=== PATIENT | male | born 1950 | race Caucasian/White ===

== ENCOUNTER → 2017-11-14 | Day surgery (SDC) | payer OTHER ==
--- NOTE | 2017-11-14 11:07 | RAD REPORT ---
EXAM DESCRIPTION: US - Guided FNA Non Breast - 11/14/2017 10:15 am CLINICAL HISTORY: E04.1 COMPARISON: Thyroid ultrasound October 29, 2017. TECHNIQUE: The patient presents for FNA of a dominant 3.3 cm thyroid nodule in the deep posterior ri ght lobe. The ultrasound-guided FNA procedure, risks and alternatives were discussed with the patient in detail . After answering all questions, both oral and written consent were obtained. The deep right nodule w as again identified at sonography. The anterior neck was prepped and draped in the usual sterile fas ion. Skin and deeper tissues were anesthetized with 1% lidocaine. Under direct sonographic visualizat ion, a 25 gauge needle was used to access the nodule. Multiple to and fro excursions of the needle ti p made. All collecting material was given to pathology. The aspiration was repeated with three additi onal 25 gauge needles. All material was retained for pathology assessment. At the conclusion of the procedure, there is a minimal amount of bleeding between the skin in the jimi rnocleidomastoid muscle. This was minimal and controlled with direct pressure and ice. No deep hemorr bill. The patient was discharged with care and precaution instructions. IMPRESSION: Ultrasound-guided FNA was performed of the posterior right lobe thyroid nodule. All obta ined material was given to pathology for cytology assessment.
== END | disposition home or self-care (01) ==
LOC: FNA 09:35
PROVIDERS: ATTEND General Practice
PROC: 0G9H3ZX Drainage of Right Thyroid Gland Lobe, Percutaneous Approach, Diagnostic (ICD-10-PCS; principal; 2017-11-14)
PROC: BG44ZZZ Ultrasonography of Thyroid Gland (ICD-10-PCS; 2017-11-14)
DX: E04.1 Nontoxic single thyroid nodule (principal)
CPT/HCPCS: 76942; 88162

== ENCOUNTER 2018-11-06 19:45 | Observation (INO) | payer OTHER ==
[2018-11-06 21:02] LABS: Protime INR 1.6
[2018-11-06 21:03] LABS: Absolute Lymphocytes (CBC) 1.5 K/uL (0.7-4.9); Absolute Monocytes 0.6 K/uL (0.1-1.3); Absolute Neutrophil 6.2 K/uL (1.8-8.0); Basophils % 0.8 % (0-1.3); Eosinophils % 4.1 % (0-4.4); Lymphocytes % 17.5 % (15.3-44.8); Monocytes % 6.6 % (3.3-12.3); RBC Red Blood Cell Count 3.04 M/uL (4.33-5.43)
[2018-11-06 21:22] LABS: ALT/SGPT 23 U/L (12-78); AST/SGOT 17 U/L (15-37); Albumin 3.9 g/dL (3.4-5.0); Alkaline Phosphatase 64 U/L (45-117); BUN Blood Urea Nitrogen 16 mg/dL (7-18); Bicarbonate 25 mmol/L (21-32); Bilirubin Direct 0.2 mg/dL (0-0.2); Bilirubin Total 0.4 mg/dL (0.2-1.0); Glucose Level 144 mg/dL (74-106); Magnesium 2.4 mg/dL (1.8-2.4); NT PRO-BNP 447 pg/mL (<125); Potassium 3.7 mmol/L (3.5-5.1); Protein, Total 7.1 g/dL (6.4-8.2); Sodium Level 144 mmol/L (136-145); Troponin (Emerg Dept Use Only) < 0.02 ng/mL (0.0-0.045)
--- NOTE | 2018-11-06 22:13 | ER ---
Nurse's Notes [facility] Name: Joe Carbone Age: 67 yrs Sex: Male : 1950 Arrival Date: 11/06/2018 Time: 19:46 Bed 23 Private MD: Gadiel Cueva Diagnosis: Anemia, unspecified Presentation: 11/06 19:57 Presenting complaint: Patient states: "I've been feeling run down, my doctor did test aj1 and my hemoglobin was 6.8 so he told me to come the emergency room" Patient denies dark stools, denies any source of bleeding that he is aware of. Reports that he takes Xarelto. Denies pain. Transition of care: patient was not received from another setting of care. Onset of symptoms was November 06, 2018. Risk Assessment: Do you want to hurt yourself or someone else? Patient reports no desire to harm self or others. Initial Sepsis Screen: Does the patient meet any 2 criteria? No. Patient's initial sepsis screen is negative. Does the patient have a suspected source of infection? No. Patient's initial sepsis screen is negative. Care prior to arrival: None. 19:57 Method Of Arrival: Ambulatory aj1 19:57 Acuity: CATIA 3 aj1 Triage Assessment: 20:03 General: Appears in no apparent distress. comfortable, Behavior is calm, cooperative, aj1 appropriate for age. Pain: Denies pain. Neuro: Level of Consciousness is awake, alert, obeys commands, Oriented to person, place, time, situation, Reports fatigue, generalized weakness. Cardiovascular: Patient's skin is warm and dry. Respiratory: Airway is patent Respiratory effort is even, unlabored, Respiratory pattern is regular, symmetrical. Historical: - Allergies: 20:03 No Known Allergies; aj1 - Home Meds: 20:03 metoprolol tartrate 25 mg Oral tab 1 tab 2 times per day [Active]; valsartan 320 mg aj1 oral tab 1 tab once daily [Active]; furosemide 40 mg Oral tab 1 tab once daily [Active]; Lipitor 80 mg Oral tab 1 tab once daily [Active]; dapsone 100 mg Oral tab 1 tab 4 a week [Active]; Vitamin D daily [Active]; amiodarone 200 mg Oral tab 1 tab once daily [Active]; breo elipta 100/25 daily [Active]; amlodipine 10 mg tab 1 tab once daily [Active]; aspirin 81 mg Oral chew 1 tab once daily [Active]; Xarelto 20 mg oral tab 1 tab once daily [Active]; - PMHx: 20:03 Atrial Fib; carotid arteries "clogged" stents placed; COPD; 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 - Social history:: Smoking status: Patient/guardian denies using tobacco. - Ebola Screening: : Patient denies travel to an Ebola-affected area in the 21 days before illness onset. Screenin:10 Abuse screen: Denies threats or abuse. Denies injuries from another. Nutritional ca1 screening: No deficits noted. Tuberculosis screening: No symptoms or risk factors identified. Fall Risk None identified. Assessment: 20:10 General: Appears in no apparent distress. comfortable, Behavior is calm, cooperative, ca1 appropriate for age. Pain: Denies pain. Neuro: Level of Consciousness is awake, alert, obeys commands, Oriented to person, place, time, situation. Cardiovascular: Heart tones S1 S2 present Capillary refill < 3 seconds Patient's skin is warm and dry. Respiratory: Airway is patent Respiratory effort is even, unlabored, Respiratory pattern is regular, symmetrical, Breath sounds are clear bilaterally. GI: Abdomen is round non-distended, Bowel sounds present X 4 quads. Abd is soft and non tender X 4 quads. Reports bloody stool. : No deficits noted. No signs and/or symptoms were reported regarding the genitourinary system. EENT: No deficits noted. No signs and/or symptoms were reported regarding the EENT system. Derm: Skin is intact, is healthy with good turgor, Skin is pink, warm \\T\\ dry. Musculoskeletal: Circulation, motion, and sensation intact. Capillary refill < 3 seconds. 21:05 Reassessment: Patient appears in no apparent distress at this time. Patient and/or ca1 family updated on plan of care and expected duration. Pain level reassessed. Patient is alert, oriented x 3, equal unlabored respirations, skin warm/dry/pink. 21:29 Reassessment: Critical Value of Hgb 6.6. Informed provider. ca1 21:54 Reassessment: Patient appears in no apparent distress at this time. Patient and/or ca1 family updated on plan of care and expected duration. Pain level reassessed. Patient is alert, oriented x 3, equal unlabored respirations, skin warm/dry/pink. Vital Signs: 20:03 BP 123 / 52; Pulse 64; Resp 18; Temp 98.4; Pulse Ox 95% on R/A; Weight 96.16 kg (R); aj1 Height 5 ft. 9 in. (175.26 cm) (R); Pain 0/10; 21:05 BP 129 / 51; Pulse 54; Resp 19; Pulse Ox 95% on R/A; ca1 21:54 BP 146 / 51; Pulse 56; Resp 19; Pulse Ox 94% on R/A; ca1 23:08 BP 144 / 52; Pulse 57; Resp 19; Pulse Ox 97% on R/A; ca1 20:03 Body Mass Index 31.31 (96.16 kg, 175.26 cm) aj1 ED Course: 19:46 Patient arrived in ED. am2 19:46 Gadiel Cueva MD is Private Physician. am2 19:53 Vinnie Valles MD is Attending Physician. kdr 20:00 Triage completed. aj1 20:03 Arm band placed on Patient placed in an exam room. aj1 20:10 Patient has correct armband on for positive identification. Placed in gown. Bed in low ca1 position. Call light in reach. Side rails up X 1. engine monitor on. Pulse ox on. NIBP on. Warm blanket given. 20:12 Amy North RN is Primary Nurse. ca1 20:40 Inserted saline lock: 20 gauge in left antecubital area, using aseptic technique. Blood ca1 collected. 21:13 XRAY Chest (1 view) In Process Unspecified. EDMS 22:12 Ysabel Calix MD is Hospitalizing Provider. kdr 22:59 No provider procedures requiring assistance completed. Patient admitted, IV remains in ca1 place. 23:12 Inserted saline lock: 20 gauge in right antecubital area, using aseptic technique. jp3 23:13 Type And Screen Sent. jp3 Administered Medications: No medications were administered Outcome: 22:13 Decision to Hospitalize by Provider. kdr 23:13 Admitted to Med/surg accompanied by tech, via wheelchair, room 213, with chart, Report ca1 called to Linn Langley RN 23:13 Condition: stable 23:13 Instructed on the need for admit. 23:27 Patient left the ED. ca1 Signatures: Dispatcher [employer] Mara Schulz RN RN [email or web address] Vinnie Valles MD MD kdr Moreno, Amanda am2 Austen Lopez jp3 Amy North RN RN ca1
--- NOTE | 2018-11-06 22:14 | EDPHYS ---
Physician Documentation [facility] Name: Joe Carbone Age: 67 yrs Sex: Male : 1950 Arrival Date: 11/06/2018 Time: 19:46 Bed 23 Private MD: Gadiel Cueva ED Physician Vinnie Valles HPI: 11/06 20:55 This 67 yrs old Male presents to ER via Ambulatory with complaints of General kdr Weakness, hgb 6.8. 20:55 The patient has been feeling generally weak and with occasional leg cramps. He had kdr blood drawn yesterday and today was called and told to come to the ED since his Hgb was 6.8.. Onset: The symptoms/episode began/occurred at an unknown time. Severity of symptoms: At their worst the symptoms were very mild in the emergency department the symptoms are unchanged. The patient has experienced similar episodes in the past, a few times. The patient has been recently seen by a physician: the patient's primary care provider, ON Friday. Historical: - Allergies: 20:03 No Known Allergies; aj1 - Home Meds: 20:03 metoprolol tartrate 25 mg Oral tab 1 tab 2 times per day [Active]; valsartan 320 mg aj1 oral tab 1 tab once daily [Active]; furosemide 40 mg Oral tab 1 tab once daily [Active]; Lipitor 80 mg Oral tab 1 tab once daily [Active]; dapsone 100 mg Oral tab 1 tab 4 a week [Active]; Vitamin D daily [Active]; amiodarone 200 mg Oral tab 1 tab once daily [Active]; breo elipta 100/25 daily [Active]; amlodipine 10 mg tab 1 tab once daily [Active]; aspirin 81 mg Oral chew 1 tab once daily [Active]; Xarelto 20 mg oral tab 1 tab once daily [Active]; - PMHx: 20:03 Atrial Fib; carotid arteries "clogged" stents placed; COPD; 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 - Social history:: Smoking status: Patient/guardian denies using tobacco. - Ebola Screening: : Patient denies travel to an Ebola-affected area in the 21 days before illness onset. ROS: 20:55 Constitutional: Negative for fever, chills, and weight loss - only general weakness kdr Eyes: Negative for injury, pain, redness, and discharge, Neck: Negative for injury, pain, and swelling, Cardiovascular: Negative for chest pain, palpitations, and edema, Respiratory: Negative for shortness of breath, cough, wheezing, and pleuritic chest pain, Abdomen/GI: Negative for abdominal pain, nausea, vomiting, diarrhea, and constipation, Back: Negative for injury and pain, : Negative for injury, bleeding, discharge, and swelling, MS/Extremity: Negative for injury and deformity, Skin: Negative for injury, rash, and discoloration, Neuro: Negative for headache, weakness, numbness, tingling, and seizure activity. Psych: Negative for depression, anxiety, suicide ideation, homicidal ideation, and hallucinations, Allergy/Immunology: Negative for hives, rash, and allergies, Endocrine: Negative for neck swelling, polydipsia, polyuria, polyphagia, and marked weight changes, Hematologic/Lymphatic: Negative for swollen nodes, abnormal bleeding, and unusual bruising. Exam: 20:55 Constitutional: This is a well developed, well nourished patient who is awake, alert, kdr and in no acute distress. Head/Face: Normocephalic, atraumatic. Eyes: Pupils equal round and reactive to light, extra-ocular motions intact. Lids and lashes normal. Conjunctiva and sclera are non-icteric and not injected. Cornea within normal limits. Periorbital areas with no swelling, redness, or edema. Neck: Trachea midline, no thyromegaly or masses palpated, and no cervical lymphadenopathy. Supple, full range of motion without nuchal rigidity, or vertebral point tenderness. No Meningismus. Chest/axilla: Normal chest wall appearance and motion. Nontender with no deformity. No lesions are appreciated. Cardiovascular: Regular rate and rhythm with a normal S1 and S2. No gallops, murmurs, or rubs. Normal PMI, no JVD. No pulse deficits. Respiratory: Lungs have equal breath sounds bilaterally, clear to auscultation and percussion. No rales, rhonchi or wheezes noted. No increased work of breathing, no retractions or nasal flaring. Abdomen/GI: Soft, non-tender, with normal bowel sounds. No distension or tympany. No guarding or rebound. No evidence of tenderness throughout. Back: No spinal tenderness. No costovertebral tenderness. Full range of motion. Skin: Warm, dry with normal turgor. Normal color with no rashes, no lesions, and no evidence of cellulitis. MS/ Extremity: Pulses equal, no cyanosis. Neurovascular intact. Full, normal range of motion. Neuro: Awake and alert, GCS 15, oriented to person, place, time, and situation. Cranial nerves II-XII grossly intact. Motor strength 5/5 in all extremities. Sensory grossly intact. Cerebellar exam normal. Normal gait. Psych: Awake, alert, with orientation to person, place and time. Behavior, mood, and affect are within normal limits. 20:55 Abdomen/GI: Rectal exam: is unremarkable, Prostate: normal, rectal tone normal, Stool: normal, guaiac negative. Vital Signs: 20:03 BP 123 / 52; Pulse 64; Resp 18; Temp 98.4; Pulse Ox 95% on R/A; Weight 96.16 kg (R); aj1 Height 5 ft. 9 in. (175.26 cm) (R); Pain 0/10; 21:05 BP 129 / 51; Pulse 54; Resp 19; Pulse Ox 95% on R/A; ca1 21:54 BP 146 / 51; Pulse 56; Resp 19; Pulse Ox 94% on R/A; ca1 23:08 BP 144 / 52; Pulse 57; Resp 19; Pulse Ox 97% on R/A; ca1 20:03 Body Mass Index 31.31 (96.16 kg, 175.26 cm) aj1 MDM: 20:55 Data reviewed: vital signs, nurses notes, lab test result(s), EKG, radiologic studies. kdr Counseling: I had a detailed discussion with the patient and/or guardian regarding: the historical points, exam findings, and any diagnostic results supporting the discharge/admit diagnosis, lab results, radiology results. 22:13 Patient medically screened. kdr 11/06 20:17 Order name: Basic Metabolic Panel; Complete Time: 21:22 kdr 11/06 20:17 Order name: CBC with Diff; Complete Time: 22:13 kdr 11/06 20:17 Order name: LFT's; Complete Time: 21:22 kdr 11/06 20:17 Order name: Magnesium; Complete Time: 21:22 kdr 11/06 20:17 Order name: NT PRO-BNP; Complete Time: : [facility] 11/06 20:17 Order name: PT-INR; Complete Time: : [facility] 11/06 20:17 Order name: Troponin (emerg Dept Use Only); Complete Time: : [facility] 11/06 20:17 Order name: XRAY Chest (1 view) [facility] 11/06 20:17 Order name: EKG; Complete Time: 20: [facility] 11/06 20:17 Order name: Cardiac monitoring; Complete Time: : [facility] 11/06 20:17 Order name: EKG - Nurse/Tech; Complete Time: : [facility] 11/06 22:13 Order name: Type And Screen [facility] 11/06 22:26 Order name: CONS Pharmacy Consult [facility] 11/06 22:26 Order name: BB Add On [facility] 11/06 20:17 Order name: IV Saline Lock; Complete Time: : [facility] 11/06 20:17 Order name: Labs collected and sent; Complete Time: : [facility] 11/06 20:17 Order name: O2 Per Protocol; Complete Time: : [facility] 11/06 20:17 Order name: O2 Sat Monitoring; Complete Time: : kdr Administered Medications: No medications were administered Disposition: 11/06/18 22:13 Hospitalization ordered by Ysabel Calix for Observation. Preliminary diagnosis is Anemia, unspecified. - Bed requested for Telemetry/MedSurg (observation). - Status is Observation. ca1 - Condition is Fair. - Problem is an ongoing problem. - Symptoms are unchanged. UTI on Admission? No Signatures: Dispatcher [employer] [facility] Mara Altamirano RN RN aj1 Vinnie Valles MD MD [facility] Nena Torres RN RN fc Amy North RN RN ca1 Corrections: (The following items were deleted from the chart) 22:44 22:13 Hospitalization Ordered by Ysaebl Calix MD for Observation. Preliminary diagnosis is Anemia, unspecified. Bed requested for Telemetry/MedSurg (observation). Status is Observation. Condition is Fair. Problem is an ongoing problem. Symptoms are unchanged. UTI on Admission? No. kdr 23:27 22:44 11/06/2018 22:13 Hospitalization Ordered by Ysabel Calix MD for Observation. ca1 Preliminary diagnosis is Anemia, unspecified. Bed requested for Telemetry/MedSurg (observation). Status is Observation. Condition is Fair. Problem is an ongoing problem. Symptoms are unchanged. UTI on Admission? No. fc
[2018-11-06] MEDS ORDERED: ACETAMINOPHEN 500 MG TAB PO ONE (22:19)
[2018-11-06] MEDS ORDERED: MORPHINE 2 MG/ML SYR IV PRN (22:19)
[2018-11-06] MEDS ORDERED: DIPHENHYDRAMINE 50 MG/ML VIAL IV ONE (22:19)
[2018-11-06] MEDS ORDERED: ACETAMINOPHEN 500 MG TAB PO PRN (22:19)
[2018-11-06] MEDS ORDERED: FUROSEMIDE 20 MG/ 2ML VIAL IV ONE (22:19)
[2018-11-06] MEDS ORDERED: ONDANSETRON 4 MG/2 ML VIAL IV PRN (22:19)
[2018-11-06] MEDS ORDERED: NA CHLORIDE 0.9% 1,000 ML IV SCH (23:00)
[2018-11-06] MEDS ORDERED: NA CHLORIDE 0.9% 250 ML IV SCH (23:00)
[2018-11-07] MEDS ORDERED: NA CHLORIDE 0.9% 250 ML ONE (01:07)
[2018-11-07] MEDS ORDERED: FUROSEMIDE 20 MG/ 2ML VIAL IV ONE (07:45)
--- NOTE | 2018-11-07 08:46 | P.HP ---
Certification for Inpatient Patient admitted to: Observation With expected LOS: <2 Midnights Patient will require the following post-hospital care: None Practitioner: I am a practitioner with admitting privileges, knowledge of patient current condition, hospital course, and medical plan of care. Services: Services provided to patient in accordance with Admission requirements found in Title 42 Section 412.3 of the Code of Federal Regulations Patient History Date of Service: 11/06/18 Reason for admission: chronic anemia; iron deficiency anemia; on anti coagulation History of Present Illness: Patient is a 67-year-old gentleman who came into the hospital with generalized weakness. He denies being short of breath but felt really weak. He has a history of atrial fibrillation and is on anticoagulation-Xarelto. He came into the ER to be evaluated. Decision was made to admit him to the hospital because his hemoglobin was 6.6. He was worked up for possible GI bleeding. His Hemoccult was negative. he was not uremic. He denied having any bright red blood per rectum or any melanotic stools. He did not have any hematemesis. He was admitted to the hospital for a blood transfusion an outpatient workup at the time of discharge. Allergies No Known Allergies Allergy (Verified 11/07/18 00:07) Home Medications: Amiodarone HCl [Cordarone*] 200 mg PO DAILY 11/07/18 Aspirin Chewable [Aspirin Chewable*] 81 mg PO DAILY 11/07/18 Atorvastatin Calcium [Lipitor] 80 mg PO DAILY 11/07/18 Cholecalciferol (Vitamin D3) [Vitamin D3] 2,000 unit PO DAILY 11/07/18 Dapsone [Dapsone*] 100 mg PO SEECOM 11/07/18 Furosemide 40 mg PO DAILY 11/07/18 Metoprolol Tartrate [Lopressor*] 25 mg PO BID 11/07/18 Rivaroxaban [Xarelto] 20 mg PO DAILY 11/07/18 Umeclidinium Brm/Vilanterol Tr [Anoro Ellipta 62.5-25 Mcg INH] 1 puff IH DAILY 11/07/18 Valsartan 320 mg PO DAILY 11/07/18 - Past Medical/Surgical History Has patient received pneumonia vaccine in the past: Yes Diabetic: No -: Afib -: COPD -: HTN -: Hyperlipidemia -: PAD -: Stents "in legs" -: partial block in heart no interventions -: carotid arteries "clogged" w/stents -: hernia repair - Family History Father Medical History: Hypertension, Stroke, Cancer Notes: brain CA Mother Medical History: Hypertension - Social History Smoking Status: Former smoker Alcohol use: Yes CD- Drugs: No Place of Residence: Home Review of Systems 10-point ROS is otherwise unremarkable Physical Examination - Vital Signs Temperature: 98.1 F Blood Pressure: 149/68 Pulse: 54 Respirations: 18 Pulse Ox (%): 94 - Physical Exam General: Alert, In no apparent distress, Oriented x3 HEENT: Atraumatic, Normocephalic Neck: Supple, JVD not distended, No Thyromegaly Respiratory: Clear to auscultation bilaterally Cardiovascular: Regular rate/rhythm, Normal S1 S2, No murmurs Gastrointestinal: Normal bowel sounds, Hypoactive, Soft and benign, Non- distended Musculoskeletal: No clubbing, No swelling, No contractures Integumentary: No rashes, No significant lesion Neurological: Normal gait, Normal speech, Normal strength at 5/5 x4 extr, Normal tone, Sensation intact, Cranial nerves 3-12 intact Lymphatics: No axilla or inguinal lymphadenopathy - Studies Laboratory Data (last 24 hrs) 11/06/18 20:46: PT 18.5 H, INR 1.60 11/06/18 20:46: WBC 8.8, Hgb 6.6 L*, Hct 22.0 L, Plt Count 354 11/06/18 20:46: Sodium 144, Potassium 3.7, BUN 16, Creatinine 1.16, Glucose 144 H, Magnesium 2.4, Total Bilirubin 0.4, AST 17, ALT 23, Alkaline Phosphatase 64 Assessment & Plan - Problems (Diagnosis) (1) Anemia Onset Date: 02/18/17 Current Visit: No Status: Acute Qualifiers: Anemia type: other cause Other causes of anemia: acute posthemorrhagic Qualified Code(s): D62 - Acute posthemorrhagic anemia (2) Atrial fibrillation Current Visit: No Status: Chronic Qualifiers: Atrial fibrillation type: chronic Qualified Code(s): I48.2 - Chronic atrial fibrillation (3) CHF (congestive heart failure) Current Visit: No Status: Chronic Qualifiers: Qualified Code(s): I50.32 - Chronic diastolic (congestive) heart failure (4) COPD (chronic obstructive pulmonary disease) Current Visit: No Status: Chronic Qualifiers: COPD type: chronic bronchitis Chronic bronchitis type: unspecified Qualified Code(s): J42 - Unspecified chronic bronchitis (5) COPD with hypoxia Onset Date: 02/18/17 Current Visit: No Status: Chronic (6) History of CVA (cerebrovascular accident) Current Visit: No Status: Chronic (7) Hypertension Current Visit: No Status: Chronic Qualifiers: Hypertension type: essential hypertension Qualified Code(s): I10 - Essential (primary) hypertension (8) PVD (peripheral vascular disease) Current Visit: No Status: Chronic - Plan 1. Continue with IV hydration and finished blood transfusion 2. Continue with IV antiviral therapy 3. Continue with pain control 4. NPO 5. Outpatient follow-up with General surgery or Gastroenterology for endoscopy 6. Monitor LFTs and lipase along with electrolytes and serial H&H. 7. GI and DVT prophylaxis Discharge Plan: Home Plan to discharge in: Greater than 2 days - Advance Directives Does patient have a Living Will: Yes Does patient have a Durable POA for Healthcare: Yes - Code Status/Comfort Care Code Status Assessed: Yes Code Status: Full Code Critical Care: No Time Spent Managing PTS Care (In Minutes): 45
--- NOTE | 2018-11-07 09:22 | EKG ---
Test Date: 2018-11-06 Test Time: 20:27:14 Sliver Cutter: ROMARIO MEASUREMENT RESULTS: Intervals: Rate: 60 CT: 198 QRSD: 92 QT: 464 QTc: 464 [place]: P: 68 CT: 198 QRS: 59 T: 58 INTERPRETIVE STATEMENTS: Normal sinus rhythm Normal ECG Compared to ECG 03/06/2017 16:45:49 Sinus bradycardia no longer present ST (T wave) deviation no longer present Prolonged QT interval no longer present Electronically Signed On 11-07-18 09:21:19 CDT by Vlad Pizarro
--- NOTE | 2018-11-07 11:27 | RAD REPORT ---
EXAM DESCRIPTION: RAD - Chest Single View - 11/06/2018 9:20 pm CLINICAL HISTORY: Weakness Chest pain. COMPARISON: Chest Single View dated 03/06/2017; Chest Pa And Lat (2 Views) dated 02/20/2017; Chest Sin gle View dated 02/17/2017; Chest Single View dated 02/17/2017 FINDINGS: Portable technique limits examination quality. The lungs are grossly clear. The heart is normal in size. No displaced fractures. IMPRESSION: No acute intrathoracic process suspected.
[2018-11-07 12:00] LABS: Absolute Monocytes 0.8 K/uL (0.1-1.3); Absolute Neutrophil 5.6 K/uL (1.8-8.0); Basophils % 0.9 % (0-1.3); Eosinophils % 3.1 % (0-4.4); Hematocrit 29.3 % (39.6-49.0); Lymphocytes % 23.1 % (15.3-44.8); MPV 9.2 fL (7.6-11.3); Monocytes % 8.7 % (3.3-12.3); RBC Red Blood Cell Count 3.95 M/uL (4.33-5.43)
[2018-11-07 12:02] LABS: Protime INR 1.15
[2018-11-07 12:24] LABS: Bilirubin Total 0.7 mg/dL (0.2-1.0); Ferritin 5.6 ng/mL (26-388); Protein, Total 7.4 g/dL (6.4-8.2)
[2018-11-07] MEDS: VALSARTAN 80 MG TAB PO SCH (13:08)
[2018-11-07] MEDS: AMIODARONE HCL 200 MG TAB PO SCH (13:09)
--- NOTE | 2018-11-07 13:09 | P.PN ---
Subjective Date of Service: 11/07/18 Chief Complaint: chronic anemia; iron deficiency anemia; on anti coagulation Subjective: No C/O voiced, Improving Patient seen and examined at bedside. No family at bedside. Chart reviewed and case discussed with nursing staff. States he feels great. No complaints this morning. Breathing well. Still complains of dark stool, 1 this morning. Occult is negative. Denies any chest pain, shortness of breath, dizziness at this time Review of Systems 10-point ROS is otherwise unremarkable Physical Examination - Vital Signs Temperature: 98.1 F Blood Pressure: 149/68 Pulse: 54 Respirations: 18 Pulse Ox (%): 94 - Physical Exam General: Alert, In no apparent distress, Oriented x3 HEENT: Atraumatic, PERRLA, EOMI Neck: Supple, JVD not distended Respiratory: Clear to auscultation bilaterally, Normal air movement Cardiovascular: Regular rate/rhythm, Normal S1 S2 Gastrointestinal: Normal bowel sounds, No tenderness Musculoskeletal: No tenderness Integumentary: No rashes Neurological: Normal speech, Normal tone, Normal affect Lymphatics: No axilla or inguinal lymphadenopathy - Studies Laboratory Data (last 24 hrs) 11/06/18 20:46: PT 18.5 H, INR 1.60 11/06/18 20:46: WBC 8.8, Hgb 6.6 L*, Hct 22.0 L, Plt Count 354 11/06/18 20:46: Sodium 144, Potassium 3.7, BUN 16, Creatinine 1.16, Glucose 144 H, Magnesium 2.4, Total Bilirubin 0.4, AST 17, ALT 23, Alkaline Phosphatase 64 Assessment And Plan - Current Problems (Diagnosis) (1) Anemia Onset Date: 02/18/17 Current Visit: No Status: Acute Qualifiers: Anemia type: other cause Other causes of anemia: acute posthemorrhagic Qualified Code(s): D62 - Acute posthemorrhagic anemia (2) Melena Current Visit: No Status: Acute (3) Atrial fibrillation Current Visit: No Status: Chronic Qualifiers: Atrial fibrillation type: chronic Qualified Code(s): I48.2 - Chronic atrial fibrillation (4) CHF (congestive heart failure) Current Visit: No Status: Chronic (5) COPD (chronic obstructive pulmonary disease) Current Visit: No Status: Chronic Qualifiers: COPD type: chronic bronchitis Chronic bronchitis type: unspecified Qualified Code(s): J42 - Unspecified chronic bronchitis (6) Coronary artery disease Current Visit: No Status: Chronic Qualifiers: Coronary Disease-Associated Artery/Lesion type: unspecified vessel or lesion type [place] vs. transplanted heart: unspecified whether [place] or transplanted heart Associated angina: angina presence unspecified Qualified Code(s): I25.10 - Atherosclerotic heart disease of [place] coronary artery without angina pectoris (7) History of CVA (cerebrovascular accident) Current Visit: No Status: Chronic (8) Hypertension Current Visit: No Status: Chronic Qualifiers: Hypertension type: essential hypertension Qualified Code(s): I10 - Essential (primary) hypertension (9) PVD (peripheral vascular disease) Current Visit: No Status: Chronic - Plan Anemia Status post 2 units PRBCs. Repeat hemoglobin improved to 8.9 Asymptomatic Continue to monitor. Monitor serial H&H. Melena Does complain of some dark stools. Occult blood negative. Also has a history of GI bleed in January of 2017. Had a full evaluation with GI at that time. Outpatient follow-up with General surgery or Gastroenterology for endoscopy Atrial fibrillation Patient in normal sinus rhythm at this time. I will restart his home amiodarone and metoprolol. Hold Xarelto at this time CHF (congestive heart failure) No evidence of volume overload this time. Will continue home medications at this time as tolerated. COPD (chronic obstructive pulmonary disease) Stable Provide supplemental oxygen as needed Breathing treatments as needed History of CVA (cerebrovascular accident) Stable. We will resume home medications as tolerated Hypertension Blood pressure elevated, though no home medications restarted. She will restart home medications as tolerated. PVD (peripheral vascular disease) DVT prophylaxis: on hold GI prophylaxis: None Diet: Fluid restriction Disposition: Pending symptomatic improvement
[2018-11-07] MEDS: METOPROLOL TAR 25 MG TAB PO SCH (21:17)
[2018-11-08] MEDS ORDERED: CYANOCOBALAMIN 1000MCG/ML INJ IM SCH (07:00)
[2018-11-08] MEDS ORDERED: FERROUS GLUCONATE 300 MG TAB PO SCH (08:00)
[2018-11-08] MEDS ORDERED: ATORVASTATIN 80 MG TAB PO SCH (09:00)
[2018-11-08] MEDS ORDERED: HOME MED 1 EA UNK (Umeclidinium Brm/Vilanterol Tr [Anoro Ellipta 62.5-25 Mcg Inh] 1 PUFF) IH SCH (09:00)
[2018-11-08] MEDS ORDERED: FUROSEMIDE 40 MG TABLET PO SCH (09:00)
[2018-11-08] MEDS ORDERED: VITAMIN D 1000 UNIT TAB PO SCH (09:00)
[2018-11-08] MEDS ORDERED: SOD FERRIC GLUC COMPLX/SUCROSE 250 MG in NA CHLORIDE 0.9% 250 ML IV SCH (09:00)
[2018-11-08] MEDS: VALSARTAN 80 MG TAB PO SCH (09:04)
[2018-11-08] MEDS: METOPROLOL TAR 25 MG TAB PO SCH (09:04)
[2018-11-08] MEDS: AMIODARONE HCL 200 MG TAB PO SCH (09:05)
[2018-11-08 12:11] LABS: Absolute Lymphocytes (CBC) 2.4 K/uL (0.7-4.9); Absolute Monocytes 0.8 K/uL (0.1-1.3); Absolute Neutrophil 7.7 K/uL (1.8-8.0); Basophils % 1.2 % (0-1.3); Eosinophils % 2.6 % (0-4.4); Hematocrit 31.7 % (39.6-49.0); Lymphocytes % 21.1 % (15.3-44.8); Monocytes % 6.7 % (3.3-12.3); RBC Red Blood Cell Count 4.34 M/uL (4.33-5.43)
--- NOTE | 2018-11-08 12:28 | EKG ---
Test Date: 2018-11-07 Test Time: 00:08:16 [employer] Milling Machine Set Up Operator: RT-O MEASUREMENT RESULTS: Intervals: Rate: 60 TX: 198 QRSD: 92 QT: 480 QTc: 480 [place]: P: 77 TX: 198 QRS: 54 T: 55 INTERPRETIVE STATEMENTS: Normal sinus rhythm Prolonged QT Abnormal ECG Compared to ECG 11/06/2018 20:27:14 Prolonged QT interval now present Electronically Signed On 11-08-18 12:24:51 CDT by Vlad Pizarro
[2018-11-08] MEDS ORDERED: NA CHLORIDE 0.9% 1,000 ML IV SCH ×2 (13:00)
== END 2018-11-08 15:30 | disposition home or self-care (01) ==
LOC: ER 19:45 → ERHOLD 22:27 → 2ND 23:14
PROVIDERS: ADMIT Hospitalist; ATTEND Hospitalist
PROC: 30233N1 Transfusion of Nonautologous Red Blood Cells into Peripheral Vein, Percutaneous Approach (ICD-10-PCS; principal; 2018-11-07)
DX: D64.9 Anemia, unspecified (principal); K92.1 Melena; I48.2 Chronic atrial fibrillation; Z79.01 Long term (current) use of anticoagulants; I11.0 Hypertensive heart disease with heart failure; I50.9 Heart failure, unspecified; J44.9 Chronic obstructive pulmonary disease, unspecified; I25.10 Atherosclerotic heart disease of native coronary artery without angina pectoris; Z86.73 Personal history of transient ischemic attack (TIA), and cerebral infarction without residual deficits; I73.9 Peripheral vascular disease, unspecified
CPT/HCPCS: 93005 ×2; 85025 ×3; 80048; 36415 ×2; 86900; 83735; 86850; 83615; 85610 ×2; 85044; 86901; 80076; 85730; 84484; 82728; 82607; 83540; 83010; 80053; 83880; 82747; 71045; 99285; 36430; J1940; J3420; J2916; P9016 ×2; J7030